=== PATIENT | male | born 1945 | race Caucasian/White ===

== ENCOUNTER 2021-06-17 19:42 | Observation (INO) | payer MEDICARE, BC ==
--- NOTE | 2021-06-17 21:11 | EDM.PDOC ---
ED HPI GENERAL MEDICAL PROBLEM - General Chief Complaint: Genitourinary Problem Stated Complaint: FOLY CLOTTED Time Seen by Provider: 06/17/21 20:00 Source of Information: Reports: Patient, Family History Limitations: Reports: No Limitations - History of Present Illness INITIAL COMMENTS - FREE TEXT/NARRATIVE: Patient is a 76 YO WM who presented to the ED because of cerrato not draining and there is gross hematuria. He was admitted at [facility] on 06/05/21 due to gross hematuria from anticoagulation with warfarin. They did CBI and coumadin was discontinued and eventually the hematuria resolved and he was discharged on 06/10/21. 2 days after discharged noticed the gross hematuria again and the cerrato quit draining today. The plan is for him to stay at the [facility] in [facility] to recover until he gained his strength back. While in the ED he c/o feeling weak and dizzy, denies having any N/V/D. No fever, chills, cough/cold. - Related Data Allergies Allergy/AdvReac Type Severity Reaction Status Date / Time No Known Allergies Allergy Verified 06/17/21 19:54 Home Meds: Home Meds Diltiazem [Diltiazem XR] 240 mg PO DAILY 06/17/21 [History] Fenofibrate 54 mg PO DAILY 06/17/21 [History] Finasteride 5 mg PO DAILY 06/17/21 [History] Furosemide 40 mg PO DAILY 06/17/21 [History] Liraglutide [Victoza 3-Anderson] 18 mg .XX DAILY 06/17/21 [History] Losartan [Cozaar] 50 mg PO BID 06/17/21 [History] Nystatin [Nystatin Crm] 15 gm ASDIRECTED PRN 06/17/21 [History] Rosuvastatin [Crestor] 20 mg DAILY 06/17/21 [History] Spironolactone [Aldactone] 25 mg PO DAILY 06/17/21 [History] Tamsulosin [Tamsulosin 24 Hr] 0.4 mg PO DAILY 06/17/21 [History] Venlafaxine HCl [Venlafaxine ER] 75 mg DAILY 06/17/21 [History] Warfarin [Coumadin] 5 mg PO DAILY 06/17/21 [History] amLODIPine [Norvasc] 5 mg PO DAILY 06/17/21 [History] carvediloL [Coreg] 25 mg PO BID 06/17/21 [History] glipiZIDE [Glucotrol] 5 mg DAILY 06/17/21 [History] hydrALAZINE [Apresoline] 50 mg PO Q8H 06/17/21 [History] metFORMIN [Glucophage XR] 500 mg BID 06/17/21 [History] Past Medical History HEENT History: Reports: Impaired Vision Other HEENT History: pt wears glasses Cardiovascular History: Reports: Other (See Below) Other Cardiovascular History: 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 but unsure of condition name Respiratory History: Reports: None Gastrointestinal History: Reports: None Genitourinary History: Reports: Other (See Below) Other Genitourinary History: Bladder spasms Musculoskeletal History: Reports: Other (See Below) Other Musculoskeletal History: Weakness Neurological History: Reports: None Psychiatric History: Reports: None Endocrine/Metabolic History: Reports: Diabetes, Type II Hematologic History: Reports: None Oncologic (Cancer) History: Reports: None Dermatologic History: Reports: None - Infectious Disease History Infectious Disease History: Reports: None - Past Surgical History Head Surgeries/Procedures: Reports: None Male Surgical History: Reports: Other (See Below) Other Male Surgeries/Procedures: Catheter placed today Musculoskeletal Surgical History: Reports: Knee Replacement Social & Family History - Family History Family Medical History: No Pertinent Family History - Tobacco Use Tobacco Use Status *Q: Former Tobacco User Used Tobacco, but Quit: Yes Month/Year Tobacco Last Used: 1964 Second Hand Smoke Exposure: No - Caffeine Use Caffeine Use: Reports: None - Recreational Drug Use Recreational Drug Use: No ED ROS GENERAL - Review of Systems Review Of Systems: See Below Constitutional: Reports: Weakness HEENT: Reports: No Symptoms Respiratory: Reports: No Symptoms Cardiovascular: Reports: No Symptoms Endocrine: Reports: No Symptoms GI/Abdominal: Reports: No Symptoms : Reports: No Symptoms Musculoskeletal: Reports: No Symptoms Skin: Reports: No Symptoms Neurological: Reports: Dizziness Psychiatric: Reports: No Symptoms Hematologic/Lymphatic: Reports: No Symptoms ED EXAM, RENAL/ - Physical Exam Exam: See Below Exam Limited By: No Limitations General Appearance: Alert, No Apparent Distress Eye Exam: Bilateral Eye: PERRL Ears: Normal External Exam, Normal Canal Nose: Normal Inspection, Normal Mucosa, No Blood Throat/Mouth: Normal Inspection, Normal Lips, Normal Teeth Head: Atraumatic, Normocephalic Neck: Normal Inspection, Supple, Non-Tender, Full Range of Motion Respiratory/Chest: No Respiratory Distress, Lungs Clear, Normal Breath Sounds, No Accessory Muscle Use, Chest Non-Tender Cardiovascular: Normal Peripheral Pulses, Regular Rate, Rhythm, No Edema, No Murmur GI/Abdominal: Normal Bowel Sounds, Soft, Non-Tender, No Organomegaly, No Distention, No Abnormal Bruit, No Mass Back Exam: Normal Inspection, Full Range of Motion Extremities: Normal Inspection, Normal Range of Motion, Non-Tender, No Pedal Edema, Normal Capillary Refill Neurological: Alert, Oriented, CN II-XII Intact Psychiatric: Normal Affect Skin Exam: Warm Course - Vital Signs Text/Narrative:: Lab result was reviewed and discussed with patient and his NS 1 l bolus Vit K 5 mg IV x1 Continuous Bladder Irrigation Code status:Full Code Covid test-negative Last Recorded V/S: Last Vital Signs Temp 36.6 C 06/17/21 20:15 Pulse 95 06/17/21 21:45 Resp 24 H 06/17/21 21:45 BP 123/72 06/17/21 21:45 Pulse Ox 95 06/17/21 21:45 - Orders/Labs/Meds Orders: Active Orders 24 hr Category Date Time Status Patient Status [ADT] Routine ADT 06/17/21 22:06 Active Bladder Irrigation [RC] CONTINUOUS Care 06/17/21 22:24 Active Cardiac Monitoring [RC] INTERMITTENT Care 06/17/21 22:08 Active Oxygen Therapy [RC] PRN Care 06/17/21 22:06 Active Pulse Oximetry [RC] PRN Care 06/17/21 22:08 Active Up With Assistance [RC] .PRN Care 06/17/21 22:06 Active VTE/DVT Education [RC] Per Unit Routine Care 06/17/21 22:06 Active Vital Signs [RC] Q4H Care 06/17/21 22:06 Active Regular Diet [DIET] Diet 06/18/21 Breakfast Active Head wo Cont [CT] Stat Exams 06/17/21 19:54 Taken BASIC METABOLIC PANEL,BMP [CHEM] AM Lab 06/18/21 05:11 Ordered CBC WITH AUTO DIFF [HEME] AM Lab 06/18/21 05:11 Ordered Docusate Sodium/Sennosides [Senna Plus] Med 06/17/21 22:06 Active 1 tab PO BID PRN Ondansetron [Zofran] Med 06/17/21 22:06 Active 4 mg IV Q4H PRN Sodium Chloride 0.9% [Normal Saline] 1,000 ml Med 06/17/21 21:45 Active IV ASDIRECTED Sodium Chloride 0.9% [Saline Flush] Med 06/17/21 21:33 Active 10 ml FLUSH ASDIRECTED PRN Saline Lock Insert [OM.PC] Routine Oth 06/17/21 21:33 Ordered Sequential Compression Device [OM.PC] Per Unit Routine Oth 06/17/21 22:08 Ordered Resuscitation Status Routine Resus Stat 06/17/21 22:06 Ordered Medication Orders Sodium Chloride (Normal Saline) 1,000 mls @ 999 mls/hr IV ASDIRECTED HUY Last Admin: 06/17/21 22:08 Dose: 999 mls/hr Documented by: GUANAKO Ondansetron HCl (Ondansetron 4 Mg/2 Ml Sdv) 4 mg IV Q4H PRN PRN Reason: Nausea/Vomiting Senna/Docusate Sodium (Docusate Sodium/Sennosides 50-8.6 Mg Tab) 1 tab PO BID PRN PRN Reason: Constipation Sodium Chloride (Sodium Chloride 0.9% 10 Ml Syringe) 10 ml FLUSH ASDIRECTED PRN PRN Reason: Keep Vein Open Last Admin: 06/17/21 22:38 Dose: 10 ml Documented by: PRECIOUS Labs: Laboratory Tests 06/17/21 06/17/21 06/17/21 Range/Units 12:05 20:28 20:28 WBC 11.8 H (3.2-10.1) x10-3/uL RBC 2.60 L (3.90-5.90) x10(6)uL Hgb 8.0 L (12.9-17.7) g/dL Hct 23.9 L (38.3-50.1) % MCV 91.7 (80.8-98.7) fL MCH 30.7 (27.0-33.3) pg MCHC 33.5 (28.7-35.3) g/dL RDW 14.5 (12.4-15.0) % Plt Count 234 (117-477) x10(3)uL MPV 6.8 (6.7-11.0) fL Neut % (Auto) 83.1 H (40.3-71.8) % Lymph % (Auto) 4.9 L (15.8-45.3) % Mclennan % (Auto) 10.6 (5.5-15.2) % Eos % (Auto) 1.2 (0.1-6.8) % Baso % (Auto) 0.2 L (0.3-3.8) % Neut # (Auto) 9.8 H (1.7-6.9) x10-3/uL Lymph # (Auto) 0.6 (0.5-4.5) x10-3/uL Mclennan # (Auto) 1.3 H (0.0-1.2) x10-3/uL Eos # (Auto) 0.1 (0.0-0.6) x10-3/uL Baso # (Auto) 0.0 (0.0-0.3) x10-3/uL PT 11.3 H (9.0-11.1) sec INR 1.05 (1.00-1.24) Sodium (135-145) mmol/L Potassium (3.5-5.3) mmol/L Chloride (100-110) mmol/L Carbon Dioxide (21-32) mmol/L BUN (7-18) mg/dL Creatinine (0.70-1.30) mg/dL Est Cr Clr Drug Dosing mL/min Estimated GFR (MDRD) (>60) BUN/Creatinine Ratio (9-20) Glucose (80-116) mg/dL Calcium (8.6-10.2) mg/dL Total Bilirubin (0.1-1.3) mg/dL AST (5-25) IU/L ALT (12-36) U/L Alkaline Phosphatase (56-112) IU/L Total Protein (6.0-8.0) g/dL Albumin (3.2-4.6) g/dL Globulin g/dL Albumin/Globulin Ratio SARS-CoV-2 RNA ([place]) Negative (NEGATIVE) 06/17/21 Range/Units 20:28 WBC (3.2-10.1) x10-3/uL RBC (3.90-5.90) x10(6)uL Hgb (12.9-17.7) g/dL Hct (38.3-50.1) % MCV (80.8-98.7) fL MCH (27.0-33.3) pg MCHC (28.7-35.3) g/dL RDW (12.4-15.0) % Plt Count (117-477) x10(3)uL MPV (6.7-11.0) fL Neut % (Auto) (40.3-71.8) % Lymph % (Auto) (15.8-45.3) % Mclennan % (Auto) (5.5-15.2) % Eos % (Auto) (0.1-6.8) % Baso % (Auto) (0.3-3.8) % Neut # (Auto) (1.7-6.9) x10-3/uL Lymph # (Auto) (0.5-4.5) x10-3/uL Mclennan # (Auto) (0.0-1.2) x10-3/uL Eos # (Auto) (0.0-0.6) x10-3/uL Baso # (Auto) (0.0-0.3) x10-3/uL PT (9.0-11.1) sec INR (1.00-1.24) Sodium 131 L (135-145) mmol/L Potassium 5.2 (3.5-5.3) mmol/L Chloride 97 L (100-110) mmol/L Carbon Dioxide 23 (21-32) mmol/L BUN 48 H (7-18) mg/dL Creatinine 1.2 (0.70-1.30) mg/dL Est Cr Clr Drug Dosing 49.88 mL/min Estimated GFR (MDRD) 59 L (>60) BUN/Creatinine Ratio 40.0 H (9-20) Glucose 244 H (80-116) mg/dL Calcium 8.5 L (8.6-10.2) mg/dL Total Bilirubin 1.0 (0.1-1.3) mg/dL AST 18 (5-25) IU/L ALT 31 (12-36) U/L Alkaline Phosphatase 65 (56-112) IU/L Total Protein 6.2 (6.0-8.0) g/dL Albumin 3.2 (3.2-4.6) g/dL Globulin 3.0 g/dL Albumin/Globulin Ratio 1.1 SARS-CoV-2 RNA ([place]) (NEGATIVE) Meds: Medications Generic Name Dose Route Start Last Admin Trade Name Freq PRN Reason Stop Dose Admin Sodium Chloride 1,000 mls @ 999 mls/hr 06/17/21 21:45 06/17/21 22:08 Normal Saline IV 999 mls/hr ASDIRECTED HUY Administration Ondansetron HCl 4 mg 06/17/21 22:06 Ondansetron 4 Mg/2 Ml Sdv IV Q4H PRN Nausea/Vomiting Senna/Docusate Sodium 1 tab 06/17/21 22:06 Docusate Sodium/Sennosides 50-8.6 Mg Tab PO BID PRN Constipation Sodium Chloride 10 ml 06/17/21 21:33 06/17/21 22:38 Sodium Chloride 0.9% 10 Ml Syringe FLUSH 10 ml ASDIRECTED PRN Administration Keep Vein Open Discontinued Medications Generic Name Dose Route Start Last Admin Trade Name Jatinq PRN Reason Stop Dose Admin Phytonadione 5 mg/ Sodium 50.5 mls @ 100 mls/hr 06/17/21 21:34 06/17/21 22:11 Chloride IV 06/17/21 22:04 100 mls/hr NOW ONE Administration Departure - Departure Time of Disposition: 21:10 Disposition: Refer to Observation Condition: Good Clinical Impression: Hematuria, Anemia - Discharge Information Sepsis Event Note (ED) - Evaluation Sepsis Screening Result: No Definite Risk - Focused Exam Vital Signs: Vital Signs Temp Pulse Resp BP Pulse Ox 06/17/21 21:45 95 24 H 123/72 95 06/17/21 20:45 99 27 H 110/64 93 L 06/17/21 20:15 36.6 C 100 27 H 122/60 93 L 06/17/21 19:56 36.9 C 97 30 H 147/71 H 94 L - My Orders Last 24 Hours: My Active Orders 06/17/21 19:54 Head wo Cont [CT] Stat 06/17/21 21:33 Sodium Chloride 0.9% [Saline Flush] 10 ml FLUSH ASDIRECTED PRN Saline Lock Insert [OM.PC] Routine 06/17/21 21:45 Sodium Chloride 0.9% [Normal Saline] 1,000 ml IV ASDIRECTED 06/17/21 22:06 Patient Status [ADT] Routine Oxygen Therapy [RC] PRN Up With Assistance [RC] .PRN VTE/DVT Education [RC] Per Unit Routine Vital Signs [RC] Q4H Docusate Sodium/Sennosides [Senna Plus] 1 tab PO BID PRN Ondansetron [Zofran] 4 mg IV Q4H PRN Resuscitation Status Routine 06/17/21 22:08 Cardiac Monitoring [RC] INTERMITTENT Pulse Oximetry [RC] PRN Sequential Compression Device [OM.PC] Per Unit Routine 06/17/21 22:24 Bladder Irrigation [RC] CONTINUOUS 06/18/21 05:11 BASIC METABOLIC PANEL,BMP [CHEM] AM CBC WITH AUTO DIFF [HEME] AM 06/18/21 Breakfast Regular Diet [DIET] - Assessment/Plan Last 24 Hours: My Active Orders 06/17/21 19:54 Head wo Cont [CT] Stat 06/17/21 21:33 Sodium Chloride 0.9% [Saline Flush] 10 ml FLUSH ASDIRECTED PRN Saline Lock Insert [OM.PC] Routine 06/17/21 21:45 Sodium Chloride 0.9% [Normal Saline] 1,000 ml IV ASDIRECTED 06/17/21 22:06 Patient Status [ADT] Routine Oxygen Therapy [RC] PRN Up With Assistance [RC] .PRN VTE/DVT Education [RC] Per Unit Routine Vital Signs [RC] Q4H Docusate Sodium/Sennosides [Senna Plus] 1 tab PO BID PRN Ondansetron [Zofran] 4 mg IV Q4H PRN Resuscitation Status Routine 06/17/21 22:08 Cardiac Monitoring [RC] INTERMITTENT Pulse Oximetry [RC] PRN Sequential Compression Device [OM.PC] Per Unit Routine 06/17/21 22:24 Bladder Irrigation [RC] CONTINUOUS 06/18/21 05:11 BASIC METABOLIC PANEL,BMP [CHEM] AM CBC WITH AUTO DIFF [HEME] AM 06/18/21 Breakfast Regular Diet [DIET]
[2021-06-17] MEDS ORDERED: Sodium Chloride 0.9% 10 ML Syringe FLUSH PRN (21:33)
[2021-06-17] MEDS ORDERED: Phytonadione 5 MG in Sodium Chloride 0.9% 50 ML IV ONE (21:34)
[2021-06-17] MEDS ORDERED: Sodium Chloride 0.9% 1,000 ML IV SCH (21:45)
[2021-06-17] MEDS ORDERED: Ondansetron 4 MG/2 ML SDV IV PRN (22:06)
[2021-06-17] MEDS ORDERED: Nystatin Crm 15 GM Tube TOP PRN (23:30)
[2021-06-18] MEDS ORDERED: Tranexamic Acid 1,000 MG in Sodium Chloride 0.9% 50 ML IV STA (00:39)
[2021-06-18] MEDS: Sodium Chloride 0.9% 1,000 ML IV SCH ×2 (00:45→09:07)
[2021-06-18] MEDS ORDERED: Tranexamic Acid 1,000 MG in Sodium Chloride 0.9% 50 ML IV SCH (00:45)
[2021-06-18] MEDS: hydrALAZINE 50 MG Tab PO SCH ×2 (01:08→08:12)
[2021-06-18] MEDS ORDERED: Belladonna Alkaloids/Opium 16.2-30 MG Supp RECTAL PRN ×2 (08:40→12:43)
[2021-06-18] MEDS ORDERED: glipiZIDE 5 MG Tab PO SCH (09:00)
[2021-06-18] MEDS ORDERED: amLODIPine 5 MG Tab PO SCH (09:00)
[2021-06-18] MEDS ORDERED: Tamsulosin 0.4 MG Cap.ER PO SCH (09:00)
[2021-06-18] MEDS ORDERED: Carvedilol 25 MG Tab PO SCH (09:00)
[2021-06-18] MEDS ORDERED: metFORMIN 500 MG Tab.ER PO SCH (09:00)
[2021-06-18] MEDS ORDERED: FENOFIBRATE 54 MG PO SCH (09:00)
[2021-06-18] MEDS ORDERED: Non-Formulary Medication 1 Each (Liraglutide [Victoza] 18 MG/3 ML Pen) SCH (09:00)
[2021-06-18] MEDS ORDERED: Finasteride 5 MG Tab PO SCH (09:00)
[2021-06-18] MEDS ORDERED: Venlafaxine 75 MG Cap.ER PO SCH (09:00)
[2021-06-18] MEDS ORDERED: Rosuvastatin 20 MG Tab PO SCH (09:00)
[2021-06-18] MEDS ORDERED: Losartan 50 MG Tab PO SCH (09:00)
[2021-06-18] MEDS ORDERED: Diltiazem 240 MG Cap.ER PO SCH (09:00)
[2021-06-18] MEDS ORDERED: Sodium Chloride 0.9% 250 ML IV SCH (10:00)
--- NOTE | 2021-06-18 10:40 | PCM.HP.2 ---
H&P History of Present Illness - General Date of Service: 06/18/21 Admit Problem/Dx: Gross hematuria on CBI. Hx of prostate cancer s/p radiation, Chronic atrial fibrillation, anticoagulation with coumadin just restarted 06/16. Source of Information: Patient, Old Records History Limitations: Reports: No Limitations - History of Present Illness Initial Comments - Free Text/Narative: Varun was admitted to [facility] 05/30-06/05/21 for gross hematuria treated with continuous bladder irrigation(CBI), held Coumadin, did not look like he had cystoscopy during that admission as his bleeding resolved with holding Coumadin. He was discharged on 06/05 and advised to hold Coumadin until urology advised. He resumed his Coumadin on 06/16. He went to [facility] as he was unable to urinate yesterday (06/17), Mcintosh was placed but was obstructed with clots so he was sent to [place] ER last night. He also had fall yesterday was dizzy and weak, hadn't eaten yesterday. Was evaluated in ER, CT head was negative. Hgb was 8.0 down from 12.1 on discharge on 06/05. He was given Tranexamic acid(TXA) to help stop bleeding in ER and then every 8 hours. His INR was 1.05 yesterday and given Vitamin K x 1. WBC 11.8, Na 131, K 5.2, Cl 97, CO2 23, BUN 48, Cr 1.2, glu 244(nonfasting). He was started on CBI in ER, NS at 125 ml/hr and admitted for observation. ER did not talk with Urology last night. - Related Data Allergies/Adverse Reactions: Allergies Allergy/AdvReac Type Severity Reaction Status Date / Time No Known Allergies Allergy Verified 06/17/21 19:54 Home Medications: Home Meds Diltiazem [Dilacor XR] 240 mg PO DAILY 06/17/21 [History] Fenofibrate 108 mg PO DAILY 06/17/21 [History] Finasteride 5 mg PO DAILY 06/17/21 [History] Furosemide 40 mg PO DAILY 06/17/21 [History] Liraglutide [Victoza] 1.8 mg SUBCUT DAILY 06/17/21 [History] Losartan [Cozaar] 50 mg PO BID 06/17/21 [History] Nystatin [Nystatin Crm] 15 gm TOP BID PRN 06/17/21 [History] Rosuvastatin [Crestor] 20 mg PO BEDTIME 06/17/21 [History] Spironolactone [Aldactone] 25 mg PO DAILY 06/17/21 [History] Tamsulosin [Flomax] 0.8 mg PO BEDTIME 06/17/21 [History] Venlafaxine HCl [Venlafaxine ER] 75 mg PO DAILY 06/17/21 [History] amLODIPine [Norvasc] 5 mg PO DAILY 06/17/21 [History] carvediloL [Coreg] 50 mg PO BID 06/17/21 [History] glipiZIDE [Glucotrol] 5 mg WITHBREAKFAST 06/17/21 [History] hydrALAZINE [Apresoline] 50 mg PO Q8H 06/17/21 [History] metFORMIN [Glucophage XR] 500 mg BID 06/17/21 [History] Acetaminophen [Mapap] 650 mg PO Q4H PRN 06/18/21 [History] Insulin Degludec [Tresiba Flextouch U-200] 30 unit SQ BEDTIME 06/18/21 [History] Melatonin 6 mg PO BEDTIME PRN 06/18/21 [History] Multivitamin-Min/Iron/FA/Vit K [Multi-Day Plus Minerals Tablet] 1 each PO DAILY 06/18/21 [History] Triamcinolone Acetonide [Triamcinolone Acetonide 0.1% Crm] 1 applic TOP DAILY PRN 06/18/21 [History] Past Medical History HEENT History: Reports: Glaucoma, Impaired Vision Other HEENT History: pt wears glasses, dermatochalasis of eyelids, dermatitis right eye, pseudophakia Cardiovascular History: Reports: Afib, High Cholesterol, Hypertension, Other (See Below) Other Cardiovascular History: a. flutter, cornary artery calcification, aortic stenosis, venous stenosis Respiratory History: Reports: Sleep Apnea Gastrointestinal History: Reports: GI Bleed Genitourinary History: Reports: Prostate Disorder, Renal Calculus, Other (See Below) Other Genitourinary History: Bladder spasms, left hydrocele Musculoskeletal History: Reports: Other (See Below) Other Musculoskeletal History: Weakness Neurological History: Reports: None Psychiatric History: Reports: Depression Endocrine/Metabolic History: Reports: Diabetes, Type II, Hypokalemia Hematologic History: Reports: Anemia, B12 Deficiency Oncologic (Cancer) History: Reports: Colon, Prostate Dermatologic History: Reports: None, Decubitus Ulcer, Other (See Below) Other Dermatologic History: actinic kerattosis, candidiasis of groin - Infectious Disease History Infectious Disease History: Reports: None - Past Surgical History Head Surgeries/Procedures: Reports: None Cardiovascular Surgical History: Reports: Other (See Below) Other Cardiovascular Surgeries/Procedures: aortic dissection, ascending aorta dilitation Male Surgical History: Reports: TURP-Transurethral Resection of Prostate, Other (See Below) Other Male Surgeries/Procedures: Catheter placed today Musculoskeletal Surgical History: Reports: Hip Replacement Social & Family History - Family History Family Medical History: No Pertinent Family History - Tobacco Use Tobacco Use Status *Q: Former Tobacco User Used Tobacco, but Quit: Yes Month/Year Tobacco Last Used: 1959 Second Hand Smoke Exposure: No - Caffeine Use Caffeine Use: Reports: None - Recreational Drug Use Recreational Drug Use: No H&P Review of Systems - Review of Systems: Review Of Systems: See Below General: Reports: Weakness, Fatigue HEENT: Reports: No Symptoms Pulmonary: Reports: No Symptoms Cardiovascular: Reports: No Symptoms Gastrointestinal: Reports: No Symptoms Genitourinary: Reports: Hematuria, Retention Musculoskeletal: Reports: No Symptoms Skin: Reports: No Symptoms Psychiatric: Reports: No Symptoms Neurological: Reports: Dizziness Hematologic/Lymphatic: Reports: Anemia Exam - Exam Exam: See Below - Vital Signs Vital Signs: Last Vital Signs Temp 98 F 06/18/21 03:00 Pulse 95 06/17/21 21:45 Resp 20 06/18/21 03:00 BP 122/72 06/18/21 08:12 Pulse Ox 99 06/18/21 03:00 Weight: 193 lb 11.2 oz - Exam Quality Assessment: Urinary Catheter General: Alert, Oriented, Cooperative HEENT: PERRLA, Conjunctiva Clear (mucosa pale), EOMI, Mucosa Moist & [place] (pale pink), Normal Nasal Septum, Posterior Pharynx Clear Neck: Supple, Trachea Midline. No: Lymphadenopathy Lungs: Clear to Auscultation, Normal Respiratory Effort Cardiovascular: Regular Rate, Irregular Rhythm GI/Abdominal Exam: Normal Bowel Sounds, Soft, Non-Tender, No Distention (Male) Exam: Other (Mcintosh in place, barth red urine) Rectal (Males) Exam: Deferred Extremities: No Pedal Edema, Slow Capillary Refill, Pallor Peripheral Pulses: 2+: Radial (L), Radial (R), Posterior Tibial (L), Posterior T ibial (R), Dorsalis Pedis (L), Dorsalis Pedis (R) Skin: Warm, Dry, Intact Neurological: Cranial Nerves Intact, Normal Speech, Normal Tone Psychiatric: Normal Mood - Patient Data Lab Results Last 24 hrs: Laboratory Results - last 24 hr 06/17/21 06/17/21 06/17/21 Range/Units 12:05 20:28 20:28 WBC 11.8 H (3.2-10.1) x10-3/uL RBC 2.60 L (3.90-5.90) x10(6)uL Hgb 8.0 L (12.9-17.7) g/dL Hct 23.9 L (38.3-50.1) % MCV 91.7 (80.8-98.7) fL MCH 30.7 (27.0-33.3) pg MCHC 33.5 (28.7-35.3) g/dL RDW 14.5 (12.4-15.0) % Plt Count 234 (117-477) x10(3)uL MPV 6.8 (6.7-11.0) fL Neut % (Auto) 83.1 H (40.3-71.8) % Lymph % (Auto) 4.9 L (15.8-45.3) % Martin % (Auto) 10.6 (5.5-15.2) % Eos % (Auto) 1.2 (0.1-6.8) % Baso % (Auto) 0.2 L (0.3-3.8) % Neut # (Auto) 9.8 H (1.7-6.9) x10-3/uL Lymph # (Auto) 0.6 (0.5-4.5) x10-3/uL Martin # (Auto) 1.3 H (0.0-1.2) x10-3/uL Eos # (Auto) 0.1 (0.0-0.6) x10-3/uL Baso # (Auto) 0.0 (0.0-0.3) x10-3/uL PT 11.3 H (9.0-11.1) sec INR 1.05 (1.00-1.24) Sodium (135-145) mmol/L Potassium (3.5-5.3) mmol/L Chloride (100-110) mmol/L Carbon Dioxide (21-32) mmol/L BUN (7-18) mg/dL Creatinine (0.70-1.30) mg/dL Est Cr Clr Drug Dosing mL/min Estimated GFR (MDRD) (>60) BUN/Creatinine Ratio (9-20) Glucose (80-116) mg/dL Calcium (8.6-10.2) mg/dL Total Bilirubin (0.1-1.3) mg/dL AST (5-25) IU/L ALT (12-36) U/L Alkaline Phosphatase (56-112) IU/L Total Protein (6.0-8.0) g/dL Albumin (3.2-4.6) g/dL Globulin g/dL Albumin/Globulin Ratio SARS-CoV-2 RNA ([place]) Negative (NEGATIVE) 06/17/21 06/18/21 06/18/21 Range/Units 20:28 06:15 06:15 WBC 8.3 (3.2-10.1) x10-3/uL RBC 2.22 L (3.90-5.90) x10(6)uL Hgb 6.9 L* (12.9-17.7) g/dL Hct 20.7 L* (38.3-50.1) % MCV 93.2 (80.8-98.7) fL MCH 31.1 (27.0-33.3) pg MCHC 33.3 (28.7-35.3) g/dL RDW 14.5 (12.4-15.0) % Plt Count 204 (117-477) x10(3)uL MPV 6.8 (6.7-11.0) fL Neut % (Auto) 77.2 H (40.3-71.8) % Lymph % (Auto) 8.0 L (15.8-45.3) % Martin % (Auto) 12.9 (5.5-15.2) % Eos % (Auto) 1.7 (0.1-6.8) % Baso % (Auto) 0.2 L (0.3-3.8) % Neut # (Auto) 6.4 (1.7-6.9) x10-3/uL Lymph # (Auto) 0.7 (0.5-4.5) x10-3/uL Martin # (Auto) 1.1 (0.0-1.2) x10-3/uL Eos # (Auto) 0.1 (0.0-0.6) x10-3/uL Baso # (Auto) 0.0 (0.0-0.3) x10-3/uL PT (9.0-11.1) sec INR (1.00-1.24) Sodium 131 L 136 (135-145) mmol/L Potassium 5.2 4.3 (3.5-5.3) mmol/L Chloride 97 L 104 D (100-110) mmol/L Carbon Dioxide 23 23 (21-32) mmol/L BUN 48 H 31 H D (7-18) mg/dL Creatinine 1.2 0.9 (0.70-1.30) mg/dL Est Cr Clr Drug Dosing 49.88 66.50 mL/min Estimated GFR (MDRD) 59 L > 60 (>60) BUN/Creatinine Ratio 40.0 H 34.4 H (9-20) Glucose 244 H 173 H (80-116) mg/dL Calcium 8.5 L 7.8 L (8.6-10.2) mg/dL Total Bilirubin 1.0 (0.1-1.3) mg/dL AST 18 (5-25) IU/L ALT 31 (12-36) U/L Alkaline Phosphatase 65 (56-112) IU/L Total Protein 6.2 (6.0-8.0) g/dL Albumin 3.2 (3.2-4.6) g/dL Globulin 3.0 g/dL Albumin/Globulin Ratio 1.1 SARS-CoV-2 RNA ([place]) (NEGATIVE) Result Diagrams: 06/18/21 06:15 06/18/21 06:15 Sepsis Event Note - Evaluation Sepsis Screening Result: No Definite Risk - Focused Exam Vital Signs: Vital Signs Temp Resp BP BP Pulse Ox 06/18/21 08:12 122/72 06/18/21 03:00 98 F 20 111/54 L 99 06/18/21 01:08 128/73 06/17/21 23:30 98 06/17/21 23:15 99.2 F 16 128/73 98 *Q Meaningful Use (ADM) - VTE *Q VTE Pharmacological Contraindications *Q: Active Hemorrhage - VTE Risk Assess *Q Each Risk Factor Represents 1 Point: None Total Score 1 Point Risk Factors: 0 Each Risk Factor Represents 2 Points: Malignancy (present or previous) Total Score 2 Point Risk Factors: 2 Each Risk Factor Represents 3 Points: Age 75 Years or Greater Total Score 3 Point Risk Factors: 3 Each Risk Factor Represents 5 Points: None Total Score 5 Point Risk Factors: 0 Venous Thromboembolism Risk Factor Score *Q: 5 - Problem List (1) Hematuria SNOMED Code(s): 80611754 ICD Code: R31.9 - HEMATURIA, UNSPECIFIED Status: Acute Current Visit: Yes Qualifiers: Hematuria type: gross Qualified Code(s): R31.0 - Gross hematuria (2) Anemia SNOMED Code(s): 163667166 ICD Code: D64.9 - ANEMIA, UNSPECIFIED Status: Acute Current Visit: Yes Problem Details: acute blood loss (3) Atrial fibrillation SNOMED Code(s): 63996706 ICD Code: I48.91 - UNSPECIFIED ATRIAL FIBRILLATION Status: Chronic Current Visit: Yes (4) DM2 (diabetes mellitus, type 2) SNOMED Code(s): 32309254 ICD Code: E11.9 - TYPE 2 DIABETES MELLITUS WITHOUT COMPLICATIONS Status: Chronic Current Visit: Yes (5) Diabetic polyneuropathy SNOMED Code(s): 42997909, 21933637 ICD Code: E11.42 - TYPE 2 DIABETES MELLITUS WITH DIABETIC POLYNEUROPATHY Status: Chronic Current Visit: Yes (6) Hypertension SNOMED Code(s): 98281486 ICD Code: I10 - ESSENTIAL (PRIMARY) HYPERTENSION Status: Chronic Current Visit: Yes (7) VINH (obstructive sleep apnea) SNOMED Code(s): 99575002 ICD Code: G47.33 - OBSTRUCTIVE SLEEP APNEA (ADULT) (PEDIATRIC) Status: Chronic Current Visit: Yes (8) Obesity SNOMED Code(s): 191005194, 862441727 ICD Code: E66.9 - OBESITY, UNSPECIFIED Status: Chronic Current Visit: Yes (9) Osteoarthritis SNOMED Code(s): 358525547 ICD Code: M19.90 - UNSPECIFIED OSTEOARTHRITIS, UNSPECIFIED SITE Status: Chronic Current Visit: Yes (10) Prostate CA SNOMED Code(s): 563467985 ICD Code: C61 - MALIGNANT NEOPLASM OF PROSTATE Status: Chronic Current Visit: Yes (11) Status post aortic dissection repair SNOMED Code(s): 733058364, 104954932 ICD Code: Z98.890 - OTHER SPECIFIED POSTPROCEDURAL STATES Status: Chronic Current Visit: Yes Problem List Initiated/Reviewed/Updated: Yes Orders Last 24hrs: Active Orders 24 hr Category Date Time Status Patient Status [ADT] Routine ADT 06/17/21 22:06 Active Bladder Irrigation [RC] CONTINUOUS Care 06/17/21 22:24 Active Cardiac Monitoring [RC] CONTINUOUS Care 06/17/21 22:08 Active Glucose [Blood Glucose Check, Bedside] [RC] QIDACANDBED Care 06/18/21 08:36 Active Oxygen Therapy [RC] 08 Care 06/17/21 22:06 Active Pulse Oximetry [RC] .PRN Care 06/17/21 22:08 Active Up With Assistance [RC] .PRN Care 06/17/21 22:06 Active Vital Signs [RC] 04,08,12,16,20,00 Care 06/17/21 22:06 Active NPO [Nothing Per Oral Diet] [DIET] Diet 06/18/21 Lunch Active Head wo Cont [CT] Stat Exams 06/17/21 19:54 Taken RED BLOOD CELLS LP [BBK] Urgent Lab 06/18/21 09:53 Ordered TYPE AND SCREEN [BBK] Urgent Lab 06/18/21 09:53 Ordered Belladonna/Opium [B & O Supprettes No. 15A] Med 06/18/21 08:40 Active 1 supp RECTAL Q6H PRN Diltiazem [Dilacor XR] Med 06/18/21 09:00 Ordered 240 mg PO DAILY Docusate Sodium/Sennosides [Senna Plus] Med 06/17/21 22:06 Active 1 tab PO BID PRN Fenofibrate [Fenofibrate] Med 06/18/21 09:00 Ordered 54 mg PO DAILY Finasteride [Proscar] Med 06/18/21 09:00 Ordered 5 mg PO DAILY Liraglutide [Victoza] Med 06/18/21 09:00 Ordered 18 mg .XX DAILY Losartan [Cozaar] Med 06/18/21 09:00 Ordered 50 mg PO BID Nystatin [Nystatin Crm] Med 06/17/21 23:30 Ordered 15 gm TOP ASDIRECTED PRN Ondansetron [Zofran] Med 06/17/21 22:06 Active 4 mg IV Q4H PRN Rosuvastatin [Crestor] Med 06/18/21 09:00 Ordered 20 mg PO DAILY Sodium Chloride 0.9% [Normal Saline] 1,000 ml Med 06/17/21 23:45 Active IV ASDIRECTED Sodium Chloride 0.9% [Normal Saline] 250 ml Med 06/18/21 10:00 Ordered IV ASDIRECTED Sodium Chloride 0.9% [Saline Flush] Med 06/17/21 21:33 Active 10 ml FLUSH ASDIRECTED PRN Tamsulosin [Flomax] Med 06/18/21 09:00 Ordered 0.4 mg PO DAILY Venlafaxine [Effexor XR] Med 06/18/21 09:00 Ordered 75 mg PO DAILY amLODIPine [Norvasc] Med 06/18/21 09:00 Pending 5 mg PO DAILY carvediloL [Coreg] Med 06/18/21 09:00 Ordered 25 mg PO BID glipiZIDE [Glucotrol] Med 06/18/21 09:00 Ordered 5 mg PO DAILY hydrALAZINE [Apresoline] Med 06/17/21 23:30 Active 50 mg PO Q8H metFORMIN [Glucophage XR] Med 06/18/21 09:00 Ordered 500 mg PO BID Saline Lock Insert [OM.PC] Routine Oth 06/17/21 21:33 Ordered Sequential Compression Device [OM.PC] Per Unit Routine Oth 06/17/21 22:08 Ordered Transfuse Red Blood Cells [COMM] Urgent Oth 06/18/21 09:53 Ordered Resuscitation Status Routine Resus Stat 06/17/21 22:06 Ordered Medication Orders Amlodipine Besylate (Amlodipine 5 Mg Tab) 5 mg PO DAILY HUY Belladonna Alkaloids/Opium (Belladonna Alkaloids/Opium 16.2-30 Mg Supp) 1 supp RECTAL Q6H PRN PRN Reason: Spasms Last Admin: 06/18/21 09:46 Dose: 1 supp Documented by: MITZI Carvedilol (Carvedilol 25 Mg Tab) 25 mg PO BID [facility] Diltiazem HCl (Diltiazem 240 Mg Cap.Er) 240 mg PO DAILY [facility] Finasteride (Finasteride 5 Mg Tab) 5 mg PO DAILY [facility] Glipizide (Glipizide 5 Mg Tab) 5 mg PO DAILY [facility] Hydralazine HCl (Hydralazine 50 Mg Tab) 50 mg PO Q8H [facility] Last Admin: 06/18/21 08:12 Dose: 50 mg Documented by: Admin: 06/18/21 01:08 Dose: 50 mg Documented by: PRITI Sodium Chloride (Normal Saline) 1,000 mls @ 125 mls/hr IV ASDIRECTED [facility] Last Admin: 06/18/21 09:07 Dose: 125 mls/hr Documented by: [id number] Infusion: 06/18/21 08:45 Dose: 125 mls/hr Documented by: [id number] Admin: 06/18/21 00:45 Dose: 125 mls/hr Documented by: PRITI Sodium Chloride (Normal Saline) 250 mls @ 100 mls/hr IV ASDIRECTED [facility] Losartan Potassium (Losartan 50 Mg Tab) 50 mg PO BID [facility] Metformin HCl (Metformin 500 Mg Tab.Er) 500 mg PO BID [facility] Non-Formulary Medication (Fenofibrate [Fenofibrate]) 54 mg PO DAILY [facility] Non-Formulary Medication (Liraglutide [Victoza]) 18 mg .XX DAILY [facility] Nystatin (Nystatin Crm 15 Gm Tube) 15 gm TOP ASDIRECTED PRN PRN Reason: Rash Ondansetron HCl (Ondansetron 4 Mg/2 Ml Sdv) 4 mg IV Q4H PRN PRN Reason: Nausea/Vomiting Rosuvastatin Calcium (Rosuvastatin 20 Mg Tab) 20 mg PO DAILY [facility] Senna/Docusate Sodium (Docusate Sodium/Sennosides 50-8.6 Mg Tab) 1 tab PO BID PRN PRN Reason: Constipation Sodium Chloride (Sodium Chloride 0.9% 10 Ml Syringe) 10 ml FLUSH ASDIRECTED PRN PRN Reason: Keep Vein Open Last Admin: 06/17/21 22:38 Dose: 10 ml Documented by: PRECIOUS Tamsulosin HCl (Tamsulosin 0.4 Mg Cap.Er) 0.4 mg PO DAILY [facility] Venlafaxine HCl (Venlafaxine 75 Mg Cap.Er) 75 mg PO DAILY [facility] Assessment/Plan Comment:: 1. Admitted for observation overnight for gross hematuria, anemia, s/p prostate cancer, chronic atrial fibrillation. 2. Gross Hematuria: CBI; barth red urine currently, discontinue Tranexamic acid . Spoke with Dr Nathan, [facility], he stated he would accept patient in transfer, coumadin would be discontinued indefinitely since he is now requiring transfusion, requested he be made NPO and transfuse 1 unit prior to transfer. Spoke with Dr Cisneros, [facility], he accepted patient in transfer to medical/surgical floor, he will go by ground ambulance once transfused. His is aware of transfer. 3. Anemia, acute blood loss: Hgb 6.9, type & screen, transfuse 1 unit of PRBCs, then saline lock for transfer. 4. Hypertension: he received his hydralazine at 7 am, blood pressure 122/72 so remainder of his blood pressure meds were held this morning. 5. Diet: NPO. 6. Activity: bedrest. 7. DVT prophylaxis: SCDs, anticoagulation contraindicated due to active hemorrhage. 8. CODE STATUS: FULL. 9. THIS NOTE ALSO SERVES DISCHARGE SUMMARY: He will be transfused 1 unit of PRBCs, [facility] Dr Cisneros and Dr Nathan have accepted pt in transfer for urology intervention. He had breakfast today and is now NPO. He received Vitamin K x 1 last night, received Tranexamic acid(TXA) x 1 doses overnight, discontinued this am dose. Had NS at 125 ml/hr overnight, held for blood transfusion. Will go by ground ambulance to [facility] today. - Mortality Measure Prognosis:: Poor
[2021-06-18] MEDS ORDERED: HYDROmorphone 2 MG/ML SDV IVPUSH PRN (12:43)
== END 2021-06-18 14:45 ==
LOC: FB.ED 19:42 → FB.MS 22:39
PROVIDERS: ADMIT Emergency Medicine; ATTEND Family Medicine
DX: R31.0 Gross hematuria (principal); D62 Acute posthemorrhagic anemia; I48.20 Chronic atrial fibrillation, unspecified; E78.00 Pure hypercholesterolemia, unspecified; I10 Essential (primary) hypertension; E11.9 Type 2 diabetes mellitus without complications; E11.42 Type 2 diabetes mellitus with diabetic polyneuropathy; G47.33 Obstructive sleep apnea (adult) (pediatric); E66.9 Obesity, unspecified; M19.90 Unspecified osteoarthritis, unspecified site; Z85.46 Personal history of malignant neoplasm of prostate; Z79.899 Other long term (current) drug therapy; Z79.4 Long term (current) use of insulin; Z87.891 Personal history of nicotine dependence; Z98.890 Other specified postprocedural states; Z20.822 Contact with and (suspected) exposure to COVID-19
CPT/HCPCS: 36415; 36430; 70450; 80048; 80053; 85025; 85610; 86850; 86900; 86901; 86920; 86922; A9270-GY; J1170; J3430; J7030; J7050; P9016; U0002

== ENCOUNTER 2021-11-02 08:34 | Observation (INO) | payer MEDICARE, BC ==
[2021-11-02] MEDS ORDERED: 50% Dextrose in Water 50 ML Syringe IVPUSH ONE ×2 (08:43→09:51)
[2021-11-02] MEDS ORDERED: Sodium Chloride 0.9% 1,000 ML IV SCH ×2 (09:15→12:45)
[2021-11-02] MEDS ORDERED: cefTRIAXone 2 GM Vial IVPUSH ONE (12:32)
[2021-11-02] MEDS ORDERED: Sodium Chloride 0.9% 500 ML IV ONE (12:32)
[2021-11-02] MEDS ORDERED: Glucagon,Human Recombinant 1 MG Vial IM PRN (13:26)
[2021-11-02] MEDS ORDERED: 50% Dextrose in Water 50 ML Syringe IVPUSH PRN (13:26)
[2021-11-02] MEDS ORDERED: Melatonin 3 MG Tab PO PRN (16:14)
[2021-11-02] MEDS ORDERED: Finasteride 5 MG Tab PO SCH (16:15)
[2021-11-02] MEDS ORDERED: Venlafaxine 75 MG Cap.ER PO SCH (16:15)
[2021-11-02] MEDS ORDERED: Spironolactone 25 MG Tab PO SCH (16:15)
[2021-11-02] MEDS ORDERED: Diltiazem 240 MG Cap.ER PO SCH (16:15)
[2021-11-02] MEDS ORDERED: amLODIPine 2.5 MG Tab PO SCH (16:30)
[2021-11-02] MEDS ORDERED: Insulin Lispro 100 Unit/ML 3 ML KwikPen SUBCUT SCH (18:00)
[2021-11-02] MEDS ORDERED: Amoxicillin/Clavulanate K 875-125 MG Tab PO SCH (20:00)
[2021-11-02] MEDS ORDERED: Carvedilol 25 MG Tab PO SCH (21:00)
[2021-11-02] MEDS ORDERED: Tamsulosin 0.4 MG Cap.ER PO SCH (21:00)
[2021-11-02] MEDS ORDERED: Losartan 50 MG Tab PO SCH (21:00)
[2021-11-02] MEDS ORDERED: Acetaminophen 325 MG Tab PO PRN (22:51)
== END 2021-11-03 10:05 | disposition home or self-care (01) ==
LOC: FB.ED 08:34 → UNDOADMOB 13:09 → FB.MS 13:09
PROVIDERS: ADMIT Student in an Organized Health Care Education/Training Program; ATTEND Student in an Organized Health Care Education/Training Program
DX: E11.649 Type 2 diabetes mellitus with hypoglycemia without coma (principal); N39.0 Urinary tract infection, site not specified; I48.91 Unspecified atrial fibrillation; I35.0 Nonrheumatic aortic (valve) stenosis; N40.1 Benign prostatic hyperplasia with lower urinary tract symptoms; E78.00 Pure hypercholesterolemia, unspecified; I10 Essential (primary) hypertension; R31.9 Hematuria, unspecified; E66.9 Obesity, unspecified; E11.42 Type 2 diabetes mellitus with diabetic polyneuropathy; G47.33 Obstructive sleep apnea (adult) (pediatric); Z87.891 Personal history of nicotine dependence; Z79.01 Long term (current) use of anticoagulants; Z79.84 Long term (current) use of oral hypoglycemic drugs; Z79.4 Long term (current) use of insulin; Z98.890 Other specified postprocedural states; Z20.822 Contact with and (suspected) exposure to COVID-19; Z68.29 Body mass index [BMI] 29.0-29.9, adult
CPT/HCPCS: 36415; 70450; 71045; 80048; 80053; 81001; 82947; 83735; 84484; 85025; 85610; 87040; 87086; 87088; 87186; 93005; 93010; 96374; 96375; 96376; 99217; 99219; 99285; 99285-25; A9270-GY; G0378; J0696; J7040; U0002